=== PATIENT | female | born 1995 | race Caucasian/White ===

== ENCOUNTER 2025-02-06 16:10 | Emergency (ER) | payer MEDICAID ==
[~2025-02-06] VITALS: Ht 162.6 cm; Wt 100.0 kg
[2025-02-06 16:17] VITALS: O2SAT 100
[2025-02-06 16:53] LABS: HEMATOCRIT. 40.2 % (36.0-48.0); HEMOGLOBIN. 13.8 g/dL (12.0-16.0); MEAN PLATELET VOLUME 7.7 fl (7.4-10.4); PLATELET 400 x1000/uL (130-400); RED BLOOD CELL COUNT 4.34 mill/uL (4.2-5.4); RED CELL DISTRIBUTION WIDTH 12.6 % (11.6-14.6)
[2025-02-06 17:04] LABS: *AMPHETAMINES SCREEN URINE NEGATIVE (NEGATIVE); *BARBITURATES SCREEN URINE NEGATIVE (NEGATIVE); *BENZODIAZEPINES SCREEN URINE NEGATIVE (NEGATIVE); *COCAINE SCREEN URINE NEGATIVE (NEGATIVE); CANNABINOID URINE SCREEN NEGATIVE (NEGATIVE); ECSTASY MDMA SCREEN URINE NEGATIVE (NEGATIVE); METHADONE URINE SCREEN NEGATIVE (NEGATIVE); OPIATES URINE SCREEN NEGATIVE (NEGATIVE); PHENCYCLIDINE URINE SCREEN NEGATIVE (NEGATIVE)
[2025-02-06 17:07] LABS: GLUCOSE URINE NEGATIVE (NEGATIVE); KETONES URINE NEGATIVE (NEGATIVE); LEUKOCYTE ESTERASE URINE TRACE (NEGATIVE); NITRITE URINE POSITIVE (NEGATIVE); OCCULT BLOOD URINE NEGATIVE (NEGATIVE); PH URINE 6.5 (4.5-8.0); PROTEIN URINE NEGATIVE (NEGATIVE); SPECIFIC GRAVITY URINE 1.002 (1.005-1.030); UROBILINOGEN URINE 0.2 E.U./dL (0.2-1.0)
[2025-02-06 17:13] LABS: UREA NITROGEN BLOOD < 5 mg/dL (9-23)
[2025-02-06 17:14] LABS: CREATININE 0.7 mg/dL (0.6-1.0)
[2025-02-06 17:15] LABS: ASPARTATE AMINOTRANSFERASE 32 IU/L (<34); ETHANOL BLOOD < 10 mg/dL (<10); PROTEIN TOTAL 7.3 g/dL (6.0-8.3)
[2025-02-06 17:17] LABS: BILIRUBIN DIRECT 0.2 mg/dL (<=3.0); BILIRUBIN TOTAL 0.6 mg/dL (0.1-1.0)
[2025-02-06 17:31] LABS: COLOR URINE STRAW (YELLOW)
[2025-02-06 17:37] LABS: BACTERIA URINE 1+; CLARITY URINE SL HAZY (CLEAR); RBC URINE NONE SEEN /hpf (0-2); SQUAMOUS EPITHELIAL CELL URINE 1+ /lpf (RARE/1+); WBC URINE 0-2 /hpf (0-2)
[2025-02-06 18:18] LABS: HCG SCREEN NEGATIVE
[2025-02-06 18:21] LABS: EOSINOPHILS % MANUAL 1.0 % (0.0-5.0); LYMPHOCYTES % MANUAL 17.0 % (20.0-60.0); MONOCYTES % MANUAL 12.0 % (2.0-8.0); NEUTROPHILS % MANUAL 70.0 % (45.0-75.0); PLATELET ESTIMATE NORMAL
[2025-02-06] MEDS: POTASSIUM CHLORIDE 20MEQ/PACKET PO ONE (22:33)
[2025-02-06] MEDS: HALOPERIDOL LACTATE 5MG/ML VIAL IM ONE (22:34)
[2025-02-06] MEDS: NITROFURANTOIN 100MG M/M CAPSULE PO SCH (22:34)
[2025-02-07] MEDS: LORAZEPAM 2MG/ML UD SYRINGE IM NR (00:48)
[2025-02-07] MEDS: HALOPERIDOL LACTATE 5MG/ML VIAL IM ONE (00:48)
[2025-02-07 07:13] VITALS: BP 119/77; PULSE 90; RESP 18; TEMP 36.3; O2SAT 98
== END 2025-02-07 07:37 ==
LOC: ER 16:10
DX: F25.9 Schizoaffective disorder, unspecified (principal); F17.200 Nicotine dependence, unspecified, uncomplicated; F15.90 Other stimulant use, unspecified, uncomplicated; F31.9 Bipolar disorder, unspecified; Z79.899 Other long term (current) drug therapy; Z20.822 Contact with and (suspected) exposure to COVID-19
CPT/HCPCS: 80076; 80305; 80048; 81003; 80307; 80329; 80320; 84703; 83735; 85025; 36415; 93005; 96372 ×2; 99285; 87426; J1630 ×2; Z7610; J2060; G0480